=== PATIENT | female | born 1935 | race Caucasian/White ===

== ENCOUNTER 2017-08-03 19:17 | Inpatient (IN) ==
--- NOTE | 2017-08-03 19:42 | Emergency Department Report ---
General Adult HPI - General Chief complaint: Chest Pain Stated complaint: Back Pain Time Seen by Provider: 08/03/17 19:41 Source: patient, EMS Mode of arrival: EMS Limitations: no limitations - History of Present Illness HPI narrative: 82-year-old female presents to the emergency department with the chief complaint of pain in her posterior left shoulder region. She noted onset of symptoms at approximately 11:30 this morning while shopping and walking through [facility]. Patient states that she has tried Gas-X and a sublingual nitroglycerin at home without improvement of symptoms. The patient's pain continued and she called EMS. Patient was given 324 mg of aspirin by mouth 1 by EMS. She was given 50 g of IV fentanyl with improvement of symptoms. Patient denies any recent trauma or injury. She was at [facility] when her symptoms began. Symptoms have been persistent in nature with some improvement since onset. Patient also noted feeling slightly sweaty with her symptoms. Patient does have a history of coronary artery disease. - Related Data Home Medications Medication Instructions Recorded Confirmed Gabapentin 300 mg PO BIDBL #0 06/19/15 08/03/17 Levothyroxine Sodium 75 mcg PO ACB #0 06/19/15 08/03/17 Ondansetron [Ondansetron Odt] 8 mg PO PRN PRN #0 06/19/15 08/03/17 Atorvastatin Calcium 20 mg PO HS #0 06/23/15 08/03/17 Cyclobenzaprine [Flexeril] 1 tab PO HS PRN 03/02/17 08/03/17 predniSONE [Prednisone] 10 mg PO DAILY 03/02/17 08/03/17 Aspirin 81 mg PO DAILY 05/19/17 08/03/17 Gabapentin 600 mg PO HS 05/19/17 08/03/17 LORazepam [Ativan] 0.5 mg PO HS 05/19/17 08/03/17 Sertraline [Zoloft] 50 mg PO HS 05/19/17 08/03/17 sulfaSALAzine [Sulfasalazine Dr] 500 mg PO BID 05/19/17 08/03/17 Nitroglycerin [Nitrostat] 0.4 mg SL PRN PRN 08/03/17 08/03/17 Previous Rx's Medication Instructions Recorded Oxycodone/Acetaminophen 5/325 1 tab PO Q6HR PRN #30 tab 03/04/17 [Percocet 5/325] PEG 3350 17gm PACKET [Miralax] 17 gm PO DAILY #7 packet 03/04/17 Clopidogrel Bisulfate [Clopidogrel] 75 mg PO DAILY #30 tab 05/20/17 Ferrous Fumarate/Docusate [Iron 1 each PO DAILY 30 Days #30 05/20/17 W-Stool Softener Cplet] tablet.er Allergies Allergy/AdvReac Type Severity Reaction Status Date / Time No Known Allergies Allergy Verified 03/04/17 11:21 Review of Systems Constitutional: Denies: fever, chills Eyes: Denies: eye pain, vision change ENT: Denies: ear pain, throat pain Cardiovascular: Denies: chest pain, palpitations Respiratory: Denies: cough, dyspnea, wheezes Gastrointestinal: Denies: abdominal pain, nausea, vomiting, diarrhea Genitourinary: Denies: urgency, dysuria Musculoskeletal: Denies: back pain, arthralgia Integumentary: Denies: erythema, rash Neurological: Denies: headache, numbness, paresthesias Psychiatric: Denies: anxiety, depression Endocrine: Denies: polydipsia, polyuria Hematological/Lymphatic: Denies: easy bruising, lymphadenopathy Allergic/Immunologic: Denies: urticaria, itchy eyes PFSH Patient Stated Medical History Cardiac Arrhythmia Yes: skips a beat, pvc Coronary Artery Disease Yes: stent x 2 2015 EF 65% Hypertension Yes Myocardial Infarction Yes: states 05/2015 Chronic Obstructive Pulmonary Yes Disease (COPD) Pneumonia Yes: Hx Sleep Apnea No Diabetes Mellitus Type 1 No Diabetes Mellitus Type 2 No Gastroesophageal Reflux Yes Disease Other GI Yes: Inguinal Hernia, 'CONSTIPATION ISSUES' Hx Incontinence Yes Hx Urinary Tract Infection Yes Anemia Yes Osteoarthritis Yes Sepsis Yes: HX OF Depression Yes Post Menopausal Yes Clinic Medical History (Last Updated 01/26/17 @ 14:19 by Laura Collins CNA) Cardiac abnormality (Acute Medical) High cholesterol (Acute Medical) Hypertension (Acute Medical) Insomnia (Acute Medical) Medical History Updates: COPD Surgical History: Right knee arthroscopy. BCC removed from calf. Left inguinal hernia repair 2012 (Dr. Brand). umbilical hernia repair 2017. Right inguinal hernia repair with mesh 03/04/2017. Family History: Reviewed and noncontributory. - Social History Smoking status: Current some day smoker second hand exposure: No Substance use type: does not use Alcohol intake frequency: does not drink Does patient use chewing tobacco?: No Physical Exam - Limitations Limitations: no limitations - General General appearance: alert, in no apparent distress - Normal Exams: Head:: Normocephalic without trauma Eyes:: Pupils are PERRLA w/ EOMI, No scleral icterus, irritation, or foreign bodies noted ENMT:: No facial trauma, nasal exudates, pharyngeal erythema, or exudates are noted Dental: No fractured, loose, or missing teeth noted Neck:: Full range of motion, without adenopathy, JVD, bruits or thyromegaly Chest/Respirations:: Clear all [place], with good airflow, and symmetry bilaterally Cardiovascular:: Regular rate and rhythm, without murmur or gallop, Pulses 2+ all extremities, capillary refill, <2 seconds all extremities Abdomen:: Bowel sounds positive, soft, non-tender, non-distended, no hepatosplenomegaly, masses or bruits noted Lymphatic:: No lymphadenopathy, or lymphedema noted Musculoskeletal:: No tenderness (she does have some tenderness to palpation behind the left shoulder blade. Doses are intact. Sensation intact. Capillary refill less than 2. Skin is intact. No erythema. No edema. No focal bony tenderness. Full range of motion. no other pain in the LUE. All other extremities are unremarkable.), or deformity noted, good range of motion, all extremities Integumentary:: No rashes, hives, or bruising noted, hair and nails, without abnormality Neurological:: Patient is alert, and oriented, cranial nerves, motor/sensory/ cerebellar, exams w/o gross deficits, to observation Psychiatric:: Patient exhibits, appropriate attention, emotion and affect Course Vital Signs Temperature 98.0 F 08/03/17 19:18 Pulse Rate 86 08/03/17 19:18 Respiratory Rate 20 08/03/17 19:18 Blood Pressure 178/84 H 08/03/17 19:18 Pulse Oximetry 100 08/03/17 19:18 Temperature 98.0 F 08/03/17 19:18 Pulse Rate 86 08/03/17 19:18 Respiratory Rate 20 08/03/17 19:18 Blood Pressure 178/84 H 08/03/17 19:18 Pulse Oximetry 100 08/03/17 19:18 Medical Decision Making - [facility] Narrative Medical decision making narrative: Labs / imaging were discussed in detail with the patient and family and questions are answered. Patient was given 324 mg of aspirin by mouth 1 by EMS prior to arrival to the emergency department today. Patient was given sublingual nitroglycerin 1 in the emergency department with no change in symptoms. She was given parental narcotic pain medication with some improvement of symptoms. Patient was discussed with her engine repairer Dr. Eamon Nguyen who recommends admission to the hospitalist service and he will see the patient in consultation. Patient and family are in agreement with the current plan of management. Patient is reviewed with Dr. Wesley Rhoades and admitted to his service in improved condition. Orders from accepting or consulting physicians who are in agreement with the current plan of management. Patient will be admitted to telemetry for further evaluation and treatment. Patient is noted to have a chronic infiltrate on her CT of the chest and at this time does not have a new or productive cough. Antibiotic regimen will be initiated at the discretion of the hospitalist after evaluation of the patient. - Differential Diagnosis ACS, PE, Pneumothorax, Metabolic disorder - Lab Data Result diagrams: 08/03/17 Unknown 08/03/17 Unknown - Radiology Data CTA Chest - IMPRESSION: Apical consolidation likely chronic atelectasis, scarring and pleural thickening. Left upper lobe peripheral infiltrate likely chronic. No CT evidence of pulmonary embolism. - EKG Data EKG #1 EKG results narrative: Sinus rhythm. 81 bpm. No STEMI. Disposition Clinical Impression: Chest pain Qualifiers: Chest pain type: unspecified Qualified Code(s): R07.9 - Chest pain, unspecified Disposition: 02 To [facility] [place] Condition: Stable Time of Disposition: 21:40 (Ad[address] Dr. Rhoades.) - Seen By: physician
--- NOTE | 2017-08-03 20:27 | Cardiology Consult Note ---
History of Present Illness Consult reason: chest pain, known to you History of present illness: L scapula pain radiating to anterior L chest all day, satrted while walking at [employer] no other radiation , similar to prior CA pain. no change after 6-8 tums and 1 SL NTG at home, partially better after IV Fentanyl. some SOA more than usual. pain may be worse with L arm moveemnt. had CP both w/ and w/o activity. according to daughter , has been having CP x 2 wks and is scheduled to see me this . she has kniwn COPd and continue to smoke although down to 2 cig /day no LE edema fever or chills recent SAM to RCA 04/2017 and previous NSTEMI 2 yrs ago. She felt terrible with a previous gerald/ stress nuc scan d/t h/a nausea and gen. ache Review of Systems All systems PM: 10-point ROS was reviewed, no additional remarkable complaints except - Hematologic/Lymphatic Hematologic/Lymphatic: Present: easy bruising PFSH Patient Stated Medical History Cardiac Arrhythmia Yes: skips a beat, pvc Coronary Artery Disease Yes: stent x 2 2015 EF 65% Hypertension Yes Myocardial Infarction Yes: states 05/2015 Chronic Obstructive Pulmonary Yes Disease (COPD) Pneumonia Yes Sleep Apnea No Diabetes Mellitus Type 1 No Diabetes Mellitus Type 2 No Gastroesophageal Reflux Yes Disease Other GI Yes: 'CONSTIPATION ISSUES' Hx Incontinence Yes Hx Urinary Tract Infection Yes Anemia Yes Osteoarthritis Yes Sepsis Yes: HX OF Depression Yes Post Menopausal Yes Clinic Medical History (Last Updated 01/26/17 @ 14:19 by Laura Collins CNA) Cardiac abnormality (Acute Medical) High cholesterol (Acute Medical) Hypertension (Acute Medical) Insomnia (Acute Medical) Medical History Updates: COPD Surgical History: Right knee arthroscopy. BCC removed from calf. Left inguinal hernia repair 2012 (Dr. Brand). umbilical hernia repair 2017. Right inguinal hernia repair with mesh 03/04/2017. - Social History Smoking status: Current some day smoker second hand exposure: No Substance use type: does not use Alcohol intake frequency: does not drink Does patient use chewing tobacco?: No Medications Home Medications Medication Instructions Recorded Confirmed Type Gabapentin 300 mg PO BIDBL #0 06/19/15 08/03/17 History Levothyroxine Sodium 75 mcg PO ACB #0 06/19/15 08/03/17 History Ondansetron [Ondansetron Odt] 8 mg PO PRN PRN #0 06/19/15 08/03/17 History Atorvastatin Calcium 20 mg PO HS #0 06/23/15 08/03/17 History Cyclobenzaprine [Flexeril] 1 tab PO HS PRN 03/02/17 08/03/17 History predniSONE [Prednisone] 10 mg PO DAILY 03/02/17 08/03/17 History Oxycodone/Acetaminophen 5/325 1 tab PO Q6HR PRN #30 tab 03/04/17 08/03/17 Rx [Percocet 5/325] PEG 3350 17gm PACKET [Miralax] 17 gm PO DAILY #7 packet 03/04/17 08/03/17 Rx Aspirin 81 mg PO DAILY 05/19/17 08/03/17 History Gabapentin 600 mg PO HS 05/19/17 08/03/17 History LORazepam [Ativan] 0.5 mg PO HS 05/19/17 08/03/17 History Sertraline [Zoloft] 50 mg PO HS 05/19/17 08/03/17 History sulfaSALAzine [Sulfasalazine Dr] 500 mg PO BID 05/19/17 08/03/17 History Clopidogrel Bisulfate [Clopidogrel] 75 mg PO DAILY #30 tab 05/20/17 08/03/17 Rx Ferrous Fumarate/Docusate [Iron 1 each PO DAILY 30 Days #30 05/20/17 08/03/17 Rx W-Stool Softener Cplet] tablet.er Nitroglycerin [Nitrostat] 0.4 mg SL PRN PRN 08/03/17 08/03/17 History Allergies Allergy/AdvReac Type Severity Reaction Status Date / Time No Known Allergies Allergy Verified 03/04/17 11:21 Exam Vital signs: Temperature 98.0 F 08/03/17 19:18 Pulse Rate 86 08/03/17 19:18 Respiratory Rate 20 08/03/17 19:18 Blood Pressure 178/84 H 08/03/17 19:18 Pulse Oximetry 100 08/03/17 19:18 - Constitutional mild distress, cachectic - Routine HEENT Exam Head: Present: normocephalic, atraumatic Eye: Present: EOMI, PERRL ENT: Present: mucous membranes moist - Routine Neck Exam Present: normal carotid upstroke. Absent: JVD, carotid bruit, lymphadenopathy, thyromegaly - Routine Chest/Breast/Axilla Exam Chest wall: Present: tenderness (L scapula point tenderness) - Routine Respiratory Exam Present: decreased breath sounds, CTA bilaterally, diminished air movement - Routine Cardiovascular Exam Present: RRR, S1 (distant), S2 (distant), no murmur. Absent: bradycardia, tachycardia, irregular rhythm, JVD - Routine Abdominal Exam Present: soft, normoactive bowel sounds, non distended, non tender - Routine Extremities Exam Present: no edema, pulses intact, normal capillary refill. Absent: cyanosis, clubbing - Routine Skin Exam Present: intact, dry. Absent: cyanosis, erythema - Routine Neurological Exam Present: alert, oriented X3, CN II-XII intact, vision grossly intact, hearing grossly intact, normal speech. Absent: altered mental status, hemineglect, facial asymmetry - Routine Psychiatric Exam Present: cooperative, good insight, anxious Results 08/03/17 Unknown 08/03/17 Unknown Cardiac Enzymes 08/03/17 Range/Units Unknown AST 32 (14-36) U/L Troponin I < 0.012 (0-0.12) ng/ml CBC 08/03/17 Range/Units Unknown WBC 12.4 H (4.5-11.0) T/MM3 RBC 3.51 L (4.00-5.20) M/MM3 Hgb 10.8 L (12-16) GM/DL Hct 32.7 L (36-46) % Plt Count 296 (130-400) T/MM3 Neut # (Auto) 10.1 H (1.8-7.7) T/MM3 Lymph # (Auto) 1.7 (1-4.8) T/MM3 [place] # (Auto) 0.6 (0-0.8) T/MM3 Eos # (Auto) 0.0 (0-0.5) T/MM3 Baso # (Auto) 0.0 (0-0.2) T/MM3 Comprehensive Metabolic Panel 08/03/17 Range/Units Unknown Sodium 135 L (136-146) MEQ/L Potassium 4.5 (3.6-5) MEQ/L Chloride 96 L (98-107) MEQ/L Carbon Dioxide 26 (22-30) MEQ/L BUN 12.0 (7-17) MG/DL Creatinine 0.8 (0.7-1.2) mg/dL Glucose 123 H (65-110) MG/DL Calcium 8.8 (8.4-10.2) MG/DL AST 32 (14-36) U/L ALT 16 (1-35) U/L Alkaline Phosphatase 84 (38-126) U/L Total Protein 7.8 (6.3-8.2) g/dL Albumin 4.5 (3.5-5.0) g/dL Intake and Output 08/03/17 08/03/17 08/03/17 06:59 14:59 22:59 Other: Weight 50 kg Patient Weight 08/04/17 06:59 Weight 50 kg - EKG Interpretation EKG: sinus rhythm, no acute changes Assessment and Plan - Assessment and Plan CP/L scapula uncertain etiology CAD w prior stents and NSTEMI COPD pain control try NTG x1 and fentanyl prior to admission home meds agree w admission 23hr r/o CA r/o PE and thoracic aneurysm (unlikely) i think chest CT is reasonable may need pharm. stress nuc scan ,premedicate w anxio;ytic thanks Hospital Course Summary Disclaimer: The visit summary below is not to be considered part of the above Progress Note.
[2017-08-03] MEDS ORDERED: IOHEXOL 350mg/ml 75ml INJECTION ONE (20:32)
[2017-08-03] MEDS ORDERED: SALINE FLUSH 10ml SYRINGE ONE (20:32)
[2017-08-03] MEDS ORDERED: NITROGLYCERIN 0.4 MG SUBLINGUAL TABLET SL ONE (21:42)
[2017-08-03] MEDS ORDERED: FentaNYL 100 MCG/2 ML INJECTION IVP ONE (22:20)
[2017-08-03] MEDS: SALINE FLUSH 10ml SYRINGE IVF PRN (22:29)
[2017-08-03] MEDS ORDERED: MORPHINE SULFATE 4mg INJECTION IVP PRN (22:47)
[2017-08-03] MEDS ORDERED: GLUCOSE ORAL GEL 40% 37.5gm PO PRN (22:47)
[2017-08-03] MEDS ORDERED: DEXTROSE 50% SYRINGE 50ml (1 AMP) IVP PRN (22:47)
[2017-08-03] MEDS ORDERED: CYCLOBENZAPRINE 10 MG TABLET PO PRN (22:47)
[2017-08-03] MEDS ORDERED: INSULIN ASPART 100unit/ml INJECTION SQ PRN (22:47)
[2017-08-03] MEDS ORDERED: NITROGLYCERIN 0.4 MG SUBLINGUAL TABLET SL PRN (22:47)
[2017-08-03 22:50] VITALS: BMI 19.3
[2017-08-03] MEDS: Oxycodone/Acetaminophen 5/325 1 TAB PO PRN (23:30)
--- NOTE | 2017-08-03 23:56 | History & Physical Report ---
History of Present Illness Date: 08/04/17 Chief complaint: left shoulder blade pain HPI: This is a 82 y/o female with a history of CAD s/p 3 stents 05/09. The patient has had previous NSTEMI 2 yrs ago. The patient had onset of left scapular pain for the past 2 weeks that comes and goes. She thought ? ms in nature and as such didn't seek immediate evaluation. Patient will note that the pain is similar to her previous episodes of cardiac instability. Today the patient was at a store shopping and the pain worsened. She became more short of breath. Appreciate that she is also a COPD patient. The patient activated EMs ultimately with her daughters encouragement, and they treated her with fentanyl which seemed to help her pain. ED eval was against acute myocardial infarct. Troponin negative, EKG non ischemic CTA chest excluded acute process. Patient was scheduled to see cardiology on and Cardiology came into the ED to evaluate and r/c admission with further consideration. Review of Systems Review of systems: no headache, no fever, chills or sweats, no neck or jaw pain. left scapular pain that at times might have been worse with palpation, not affected by breathing. today pain also wrapped around her left breast. This pain is improved with fentanyl. NtG not clear if helped. Increased short of breath today, cough non productive, no abdomen pain, no diaphoresis, no nausea/ vomiting, no change in BM, no skin rashes, no edema to legs, no focal neuro complaints. 12 point ROS otherwise negative except for outlined above. Past Medical History Medical History: Medical History (Last Updated 01/26/17 @ 14:19 by Laura Collins CNA) Cardiac abnormality High cholesterol Hypertension Insomnia Medical History Updates: COPD Surgical History: Right knee arthroscopy. BCC removed from calf. Left inguinal hernia repair 2012 (Dr. Brand). umbilical hernia repair 2017. Right inguinal hernia repair with mesh 03/04/2017. Family History: No Significant Family History - Social History Smoking status: Current some day smoker Substance use type: does not use Alcohol intake frequency: does not drink Housing: assisted living facility Household members: none Current occupational status: retired Previous occupational history: housewife Does patient use chewing tobacco?: No Current residence: Independent Living Medications Home Medications Medication Instructions Recorded Confirmed Type Gabapentin 300 mg PO BIDBL #0 06/19/15 08/03/17 History Levothyroxine Sodium 75 mcg PO ACB #0 06/19/15 08/03/17 History Ondansetron [Ondansetron Odt] 8 mg PO PRN PRN #0 06/19/15 08/03/17 History Atorvastatin Calcium 20 mg PO HS #0 06/23/15 08/03/17 History Cyclobenzaprine [Flexeril] 1 tab PO HS PRN 03/02/17 08/03/17 History predniSONE [Prednisone] 10 mg PO DAILY 03/02/17 08/03/17 History Oxycodone/Acetaminophen 5/325 1 tab PO Q6HR PRN #30 tab 03/04/17 08/03/17 Rx [Percocet 5/325] PEG 3350 17gm PACKET [Miralax] 17 gm PO DAILY #7 packet 03/04/17 08/03/17 Rx Aspirin 81 mg PO DAILY 05/19/17 08/03/17 History Gabapentin 600 mg PO HS 05/19/17 08/03/17 History LORazepam [Ativan] 0.5 mg PO HS 05/19/17 08/03/17 History Sertraline [Zoloft] 50 mg PO HS 05/19/17 08/03/17 History sulfaSALAzine [Sulfasalazine Dr] 500 mg PO BID 05/19/17 08/03/17 History Clopidogrel Bisulfate [Clopidogrel] 75 mg PO DAILY #30 tab 05/20/17 08/03/17 Rx Ferrous Fumarate/Docusate [Iron 1 each PO DAILY 30 Days #30 05/20/17 08/03/17 Rx W-Stool Softener Cplet] tablet.er Nitroglycerin [Nitrostat] 0.4 mg SL PRN PRN 08/03/17 08/03/17 History Allergies Allergy/AdvReac Type Severity Reaction Status Date / Time No Known Allergies Allergy Verified 03/04/17 11:21 Exam Vital Signs: Temperature 98.4 F 08/03/17 22:51 Pulse Rate 72 08/03/17 22:52 Respiratory Rate 12 08/03/17 23:30 Blood Pressure 167/71 H 08/03/17 22:47 Pulse Oximetry 96 08/03/17 22:52 Telemetry Rhythm: Sinus Rhythm Height/Weight/BMI: Height 1.57 m Weight 48.1 kg Body Mass Index 19.3 - Constitutional Present: no acute distress, well nourished, well developed, thin, cooperative - Routine HEENT Exam Head: Present: normocephalic, atraumatic Eye: Present: PERRL, conjunctivae pink ENT: Present: mucous membranes moist - Routine Neck Exam Present: full ROM - Routine Chest/Breast/Axilla Exam Comments: left back not tender to palpation per nursing - Routine Respiratory Exam Comments: very diminished without wheezes (insp or exp) - Routine Cardiovascular Exam Present: RRR, no murmur - Routine Abdominal Exam Present: soft, normoactive bowel sounds, non distended, non tender - Routine Extremities Exam Present: non tender, full ROM - Routine Back/Spine/Pelvis Exam Back/Spine: Present: full ROM - Routine Skin Exam Present: intact - Routine Neurological Exam Present: alert, oriented X3, CN II-XII intact, moving all extremities, normal tone, vision grossly intact, hearing grossly intact, normal speech - Routine Psychiatric Exam Present: normal thought process, cooperative, good insight, good judgment Results - Labs CBC & Chem 7: 08/03/17 Unknown 08/04/17 04:24 Labs: reviewed and will be discussed below pCXR no acute process CT chest no PE, chronic changes most c/w chronic lung ds. EKG: sinus, non ischemic (see card note) Assessment and Plan (1) Chest pain of unknown etiology Current visit: Yes (2) Coronary artery disease Current visit: Yes Status: Acute (3) DM type 2 (diabetes mellitus, type 2) Current visit: Yes Status: Acute (4) Hypothyroid coma Current visit: Yes Status: Acute (5) Hypothyroid Current visit: Yes Status: Acute (6) COPD (chronic obstructive pulmonary disease) Current visit: Yes Status: Acute (7) Iron (Fe) deficiency anemia Current visit: Yes Status: Acute Assessment and Plan: 1. left scapular pain acute POA: at this time admit and rule out. concerning issue is similar pain to previous unstable anginal events. Card saw in ED and will see in am. NPO for ? nuc stress. Patient with anxiety (states would never have this test again). Cardiology will assess and address after rule out overnight. DDX: MS, pleuresy, atypical GERD. Patient CT excluded large PE. 2. CAD chronic POA: continue statin, plavix, aspirin, currently does not appear to be on b diogenes. most likely related to pulm ds. (see # 1) 3. DM2 chronic POA: correctional plan 4. hypothryoid chronic POA: synthroid, 5. COPD chronic POA: continues to smoke (down 2 # 2 cig a day). 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 nebs prn. ? if on steroids. need to confirm. for now will not continue overnight 6. DVT ppx; SCd, lovenox 7. gastric ppx: PPI DVT Prophylaxis: SCD's, Lovenox GI Prophylaxis: Protonix Resuscitation Status: Do Not Resuscitate - Time spent with patient Time with patient PN: 35 minutes - Physician Narrative Physician: Brian Ortiz MD Narrative: Date: 07/23/17 Time: Piotr Ortiz Have independently interviewed and examined pt. Chart reviewed. Reviewed above note and concur. CC: Left shoulder pain HPI: 82 y/o female with known CAD and recent stent placement in April of this year [place] [facility] [place] secondary to left shoulder radiating to left chest pain, feeling similar to pain she had when had her NC about 3 years ago. Report her energy level has increased significantly since receiving IV IRON injections. Has been able to be more and more active. Started having increased left shoulder pain about 2 weeks ago. No obvious trauma or injury (reports just more active). Pain would wax and wane. Day of presentation, was shopping for groceries when shoulder pain worsen. Pain so severe that would take her breath away. Hard to breath do to pain. Wondered if was gas - went to the pharmacy and tried simethicone, with no help. Had to leave all her groceries there as could not handle checking out with the pain. At home-tried NTG with no change. Ultimately activated EMS. Given NTG and IV Fentanyl which helped decrease her symptoms (did have concern that her NTG is old - did not feel the 'burning' with her table as the one she was given.) Evaluated in ED. CTA negative for PE. Trop negative. Dr Nguyen contacted and recommended further evaluation to exclude AMI. PMHx: CAD with Hx NC and stents, HTN, HDL, COPD, Tobacco dependency, GERD, Constipation, OA, OF, Depression, insomnia ALL: NKDA MEDS: see MAR SHx: (lost of 54 years about 4 years ago). Reside independently with daughter next door. Smokes about 2 cigarettes a day. No ETOH. Dr Tacos Garcia is PCP. FHX: CAD In mother, father, 2 sisters and brother. ROS: as in HPI, Remainder of 10 point ROS neg except for constipation which she reports morning cigarette helps. EXAM GEN: [id number] A&O HEENT: NC/AT PERRLA EOMI MMM NECK: supple, trachea midline CV: regular rate and rhythm without murmur Lungs: decrease breath sounds bilaterally, but good air movement without crackles/wheezes/distress AB: Soft nt/nd +BS EXT: thin, no edema SKIN: warm and dry. Thin skin noted on LE bilaterally, with chronic bruising Neuro: CN II-XII intact, no focal motor deficits PSYCH: awake, alert, appropriate. Thoughts linear. Assessment Left shoulder pain - concern for underlying unstable angina base on patient's prior history CAD with recent stent placement in April of this year HTN HDL COPD Tobacco dependency GERD Constipation OA OF Plan OBS admission at presentation secondary to cardiac concerns to rule out AMI. TELE. Serial enzymes. Consult Dr Nguyen for cardiac recommendations. Continue home medications. Check lipid profile secondary to CAD/HDL and medication use. MS/NTG prn pain. Encourage tobacco cessation - Consult to RT placed. DNR as per her requests. Care to return to Dr Garcia at time of discharge [place] [facility] [place] Hospital Course Summary Disclaimer: The visit summary below is not to be considered part of the above Progress Note.
[2017-08-04] MEDS: Oxycodone/Acetaminophen 5/325 1 TAB PO PRN ×2 (06:27→14:10)
[2017-08-04] MEDS ORDERED: LEVOTHYROXINE 75 MCG TABLET PO SCH (06:30)
[2017-08-04 07:47] VITALS: TEMP 97.9
[2017-08-04] MEDS ORDERED: PredniSONE 10 MG TABLET PO SCH (08:00)
[2017-08-04] MEDS ORDERED: DOCUSATE SODIUM 100 MG CAPSULE PO SCH (08:00)
--- NOTE | 2017-08-04 08:12 | CT Scan Report ---
Indication: Shortness of air and upper back pain radiating to the chest PROCEDURE: CT angio pulm emboli: Encounter: Initial Comparison: None Technique: Axial CT pulmonary angiographic phase images were performed through the chest after the administration of intravenous contrast. Coronal and Sagittal MIP reconstructed images were created and reviewed. Automated Exposure Control and Iterative Reconstruction dose reducing techniques were utilized. Contrast: Omnipaque 350 49 mL Findings: Pulmonary arteries: Exam is diagnostic to the subsegmental pulmonary arterial level. No filling defects identified to suggest a pulmonary embolus. Other findings: Bilateral apical pleural thickening and scarring. No acute consolidative pneumonia. No pleural effusion or pneumothorax. Evidence of prior infection or inflammation in the lingula. Patulous esophagus. The central airways are patent. No gross adenopathy. Heart size is normal. No pericardial effusion. Upper abdomen shows no acute findings. Impression: No pulmonary embolus or acute pneumonia. There is a preliminary report by virtual radiologic. .
[2017-08-04] MEDS ORDERED: CLOPIDOGREL 75 MG TABLET PO SCH (09:00)
[2017-08-04] MEDS ORDERED: POLYETHYL GLYCOL 3350 17gm PACKET PO SCH (09:00)
[2017-08-04] MEDS ORDERED: ASPIRIN 81 MG CHEWABLE TABLET PO SCH (09:00)
[2017-08-04] MEDS ORDERED: METOCLOPRAMIDE 10mg/2ml INJECTION IVP PRN (11:42)
[2017-08-04] MEDS ORDERED: NITROGLYCERIN 0.4 MG SUBLINGUAL TABLET SL PRN (11:42)
[2017-08-04] MEDS ORDERED: HYDROCODONE/APAP 5mg/325mg TABLET PO PRN (11:42)
[2017-08-04] MEDS ORDERED: ACETAMINOPHEN 325 MG TABLET PO PRN (11:42)
[2017-08-04] MEDS ORDERED: MAG-AL + SIM ORAL LIQUID 30ml PO PRN (11:42)
[2017-08-04] MEDS ORDERED: ATROPINE 1 MG/ML INJECTION IVP PRN (11:42)
[2017-08-04] MEDS ORDERED: LORazepam 0.5 MG TABLET PO PRN (11:42)
[2017-08-04] MEDS ORDERED: ONDANSETRON 4 MG/2 ML INJECTION IVP PRN (11:42)
[2017-08-04] MEDS ORDERED: BISACODYL 10 MG SUPPOSITORY RECTALLY PRN (11:42)
[2017-08-04] MEDS ORDERED: MORPHINE SULFATE 4mg INJECTION IVP PRN ×2 (11:42)
[2017-08-04] MEDS ORDERED: PROMETHAZINE 25 MG INJECTION IVP PRN (11:42)
--- NOTE | 2017-08-04 11:49 | Cardiology Progress Note ---
Subjective Interval history: vague historian ,copntinuied to have L CP to scapula ,worse with activity ( after she got iron infusion and felt more enrgetic started experiencing worse L shoulder/cp in the last a couple of months. at times also worse with breathing and shoulder movement. "I'd rather than having another stress test, can you put me out like with the heart cath ? that was a piece of cake" doesn't remember what NTG did . CP has been intermittent Exam Vital signs: Temperature 97.9 F 08/04/17 07:41 Pulse Rate 64 08/04/17 10:53 Respiratory Rate 13 08/04/17 07:41 Blood Pressure 140/64 H 08/04/17 07:41 Pulse Oximetry 96 08/04/17 08:07 Inpatient Medications: Generic Name Dose Route Start Last Admin Trade Name Freq PRN Reason Stop Dose Admin Aspirin 81 mg 08/04/17 09:00 Asa PO DAILY [facility] Atorvastatin Calcium 20 mg 08/04/17 21:00 Lipitor PO HS [facility] Clopidogrel Bisulfate 75 mg 08/04/17 09:00 Plavix PO DAILY [facility] Cyclobenzaprine HCl 10 mg 08/03/17 22:47 08/03/17 23:20 Flexeril PO 10 mg HS PRN Administration Muscle spasm Dextrose 25 ml 08/03/17 22:47 D50%W IVP PRN PRN Hypoglycemia Docusate Sodium 100 mg 08/04/17 08:00 Colace PO 0800 WILLOW Ferrous Sulfate 1 mg 08/04/17 08:00 Feosol PO WB [facility] Gabapentin 300 mg 08/04/17 08:00 Neurontin PO BIDBL [facility] Gabapentin 600 mg 08/04/17 21:00 08/03/17 23:20 Neurontin PO 600 mg HS WILLOW Administration Glucose 37.5 gm 08/03/17 22:47 Glutose 15 PO PRN PRN Hypoglycemia Insulin Aspart 1 - 5 unit 08/03/17 22:47 Novolog SQ SS PRN Hyperglycemia Protocol Levothyroxine Sodium 75 mcg 08/04/17 06:30 08/04/17 06:27 Synthroid PO 75 mcg ACB WILLOW Administration Lorazepam 0.5 mg 08/04/17 21:00 08/03/17 23:20 Ativan PO 0.5 mg HS WILLOW Administration Morphine Sulfate 2 mg 08/03/17 22:47 Morphine Sulfate Inj IVP Q5M PRN Chest pain Nitroglycerin 0.4 mg 08/03/17 22:47 Nitrostat SL PRN PRN Chest pain Oxycodone/Acetaminophen 1 tab 08/03/17 22:47 08/04/17 06:27 Percocet 5/325 PO 1 tab Q6HR PRN Administration Pain Polyethylene Glycol 17 gm 08/04/17 09:00 08/04/17 09:09 Miralax PO Not Given DAILY WILL[facility] Prednisone 10 mg 08/04/17 08:00 Deltasone 10 Mg PO WB WILL[facility] Sertraline HCl 50 mg 08/04/17 21:00 Zoloft PO HS WILL[facility] Sodium Chloride 10 - 80 ml 08/03/17 19:42 08/03/17 22:29 Iv Flush IVF 10 ml PRN PRN Administration Flushing Sulfasalazine 500 mg 08/04/17 09:00 Azulfidine PO BID WILLOW Discontinued Medications Generic Name Dose Route Start Last Admin Trade Name Freq PRN Reason Stop Dose Admin Fentanyl 50 mcg 08/03/17 22:20 08/03/17 22:28 Fentanyl IVP 08/03/17 22:21 50 mcg O ONE Administration Nitroglycerin 0.4 mg 08/03/17 21:42 08/03/17 22:10 Nitrostat SL 08/03/17 21:43 0.4 mg O ONE Administration Results 08/03/17 Unknown 08/04/17 04:24 Cardiac Enzymes 08/03/17 08/03/17 08/04/17 Range/Units 22:59 Unknown 04:24 AST 32 26 (14-36) U/L Troponin I < 0.012 < 0.012 (0-0.12) ng/ml 08/04/17 Range/Units 04:24 AST (14-36) U/L Troponin I < 0.012 (0-0.12) ng/ml Lipids 08/04/17 Range/Units 04:24 Triglycerides 68 (35-135) mg/dL Cholesterol 129 L (132-199) mg/dL HDL Cholesterol 76 H (40-60) mg/dL Cholesterol/HDL Ratio 1.7 (0-4.0) RATIO CBC 08/03/17 Range/Units Unknown WBC 12.4 H (4.5-11.0) T/MM3 RBC 3.51 L (4.00-5.20) M/MM3 Hgb 10.8 L (12-16) GM/DL Hct 32.7 L (36-46) % Plt Count 296 (130-400) T/MM3 Neut # (Auto) 10.1 H (1.8-7.7) T/MM3 Lymph # (Auto) 1.7 (1-4.8) T/MM3 Powell # (Auto) 0.6 (0-0.8) T/MM3 Eos # (Auto) 0.0 (0-0.5) T/MM3 Baso # (Auto) 0.0 (0-0.2) T/MM3 Comprehensive Metabolic Panel 08/03/17 08/04/17 Range/Units Unknown 04:24 Sodium 135 L 137 (136-146) MEQ/L Potassium 4.5 4.2 (3.6-5) MEQ/L Chloride 96 L 100 (98-107) MEQ/L Carbon Dioxide 26 29 (22-30) MEQ/L BUN 12.0 12.0 (7-17) MG/DL Creatinine 0.8 0.8 (0.7-1.2) mg/dL Glucose 123 H 86 (65-110) MG/DL Calcium 8.8 8.4 (8.4-10.2) MG/DL AST 32 26 (14-36) U/L ALT 16 13 (1-35) U/L Alkaline Phosphatase 84 62 D (38-126) U/L Total Protein 7.8 6.6 (6.3-8.2) g/dL Albumin 4.5 3.6 (3.5-5.0) g/dL Intake and Output 08/03/17 08/04/17 08/04/17 22:59 06:59 14:59 Intake Total 240 / 240 Balance 240 / 240 Intake: Oral 240 / 240 Other: Urine Appearance Clear Urine Color Pale Yellow # Voids 1 1 1 Weight 48.1 kg 49 kg Patient Weight 08/05/17 06:59 Weight 49 kg Hospital Course Summary Disclaimer: The visit summary below is not to be considered part of the above Progress Note.
[2017-08-04] MEDS ORDERED: NS 1,000 ML IV SCH (12:00)
[2017-08-04] MEDS ORDERED: SERTRALINE 50 MG TABLET PO SCH ×2 (12:00→21:00)
[2017-08-04] MEDS ORDERED: ATORVASTATIN 20 MG TABLET PO SCH ×2 (12:00→21:00)
[2017-08-04] MEDS: SALINE FLUSH 10ml SYRINGE IVF PRN (12:10)
[2017-08-04] MEDS ORDERED: LIDOCAINE 1% (10mg/ml) 30ml SDV INJ ONE (12:36)
[2017-08-04] MEDS ORDERED: HEPARIN 1,000 UNITS/500 ML PREMIX (*CVL ONLY*) IV ONE ×2 (12:36→13:00)
[2017-08-04] MEDS ORDERED: HEPARIN 1,000unit/ml INJECTION 10ml ONE (12:56)
[2017-08-04] MEDS ORDERED: MIDAZOLAM 2mg/2ml INJECTION ONE (12:56)
[2017-08-04] MEDS ORDERED: FentaNYL 100 MCG/2 ML INJECTION ONE (12:56)
[2017-08-04] MEDS ORDERED: NITROGLYCERIN 50MG INJECTION IV ONE (12:56)
[2017-08-04] MEDS ORDERED: Verapamil 5 MG/2 ML VIAL ONE (12:56)
--- NOTE | 2017-08-04 13:43 | Cardiology Progress Note ---
Subjective Interval history: vague historian ,copntinuied to have L CP to scapula ,worse with activity ( after she got iron infusion and felt more enrgetic started experiencing worse L shoulder/cp in the last a couple of months. at times also worse with breathing and shoulder movement. "I'd rather than having another stress test, can you put me out like with the heart cath ? that was a piece of cake" doesn't remember what NTG did . CP has been intermittent since admission Exam Vital signs: Temperature 97.9 F 08/04/17 07:41 Pulse Rate 64 08/04/17 10:53 Respiratory Rate 13 08/04/17 07:41 Blood Pressure 140/64 H 08/04/17 07:41 Pulse Oximetry 95 08/04/17 12:58 Inpatient Medications: Generic Name Dose Route Start Last Admin Trade Name Freq PRN Reason Stop Dose Admin Acetaminophen 325 - 650 mg 08/04/17 11:42 Tylenol PO Q5H PRN Pain Hydrocodone Bitart/Acetaminophen 1 - 2 tab 08/04/17 11:42 Jones 5/325 PO Q5H PRN Pain Al Hydroxide/Mg Hydroxide 30 ml 08/04/17 11:42 Maalox Plus PO Q3H PRN Indigestion Aspirin 81 mg 08/04/17 09:00 Asa PO DAILY [facility] Atorvastatin Calcium 20 mg 08/04/17 12:00 Lipitor PO DAILY [facility] Atropine Sulfate 0.5 mg 08/04/17 11:42 Atropine IVP Q5M PRN Bradycardia Bisacodyl 10 mg 08/04/17 11:42 Dulcolax RECTALLY DAILY PRN Constipation Clopidogrel Bisulfate 75 mg 08/04/17 09:00 Plavix PO DAILY [facility] Cyclobenzaprine HCl 10 mg 08/03/17 22:47 08/03/17 23:20 Flexeril PO 10 mg HS PRN Administration Muscle spasm Dextrose 25 ml 08/03/17 22:47 D50%W IVP PRN PRN Hypoglycemia Docusate Sodium 100 mg 08/04/17 08:00 08/04/17 11:55 Colace PO Not Given 0800 WILL[facility] Ferrous Sulfate 1 mg 08/04/17 08:00 Feosol PO WB [facility] Gabapentin 300 mg 08/04/17 08:00 Neurontin PO BIDBL [facility] Gabapentin 600 mg 08/04/17 21:00 08/03/17 23:20 Neurontin PO 600 mg HS WILL[facility] Administration Glucose 37.5 gm 08/03/17 22:47 Glutose 15 PO PRN PRN Hypoglycemia Sodium Chloride 1,000 mls @ 75 mls/hr 08/04/17 12:00 08/04/17 12:10 Normal Saline IV 75 mls/hr .[id number] WILLOW Administration Insulin Aspart 1 - 5 unit 08/03/17 22:47 Novolog SQ SS PRN Hyperglycemia Protocol Levothyroxine Sodium 75 mcg 08/04/17 06:30 08/04/17 06:27 Synthroid PO 75 mcg ACB [facility] Administration Lorazepam 0.5 mg 08/04/17 21:00 08/03/17 23:20 Ativan PO 0.5 mg HS WILLOW Administration Lorazepam 0.5 - 1 mg 08/04/17 11:42 Ativan PO Q4H PRN Anxiety Lorazepam 0.5 - 1 mg 08/04/17 11:42 Ativan Inj IVP Q4H PRN Anxiety Magnesium Hydroxide 30 ml 08/04/17 11:42 Mom PO DAILY PRN Constipation Metoclopramide HCl 5 - 10 mg 08/04/17 11:42 Reglan IVP Q6H PRN Nausea &/or vomiting Morphine Sulfate 2 mg 08/03/17 22:47 Morphine Sulfate Inj IVP Q5M PRN Chest pain Morphine Sulfate 2 - 4 mg 08/04/17 11:42 Morphine Sulfate Inj IVP 08/05/17 11:41 Q2H PRN Pain Morphine Sulfate 2 - 4 mg 08/04/17 11:42 Morphine Sulfate Inj IVP Q5M PRN Angina Nitroglycerin 0.4 mg 08/03/17 22:47 Nitrostat SL PRN PRN Chest pain Nitroglycerin 0.4 mg 08/04/17 11:42 Nitrostat SL Q5M PRN Angina Ondansetron HCl 4 mg 08/04/17 11:42 Zofran IVP Q6H PRN Nausea &/or vomiting Oxycodone/Acetaminophen 1 tab 08/03/17 22:47 08/04/17 06:27 Percocet 5/325 PO 1 tab Q6HR PRN Administration Pain Polyethylene Glycol 17 gm 08/04/17 09:00 08/04/17 09:09 Miralax PO Not Given DAILY [facility] Prednisone 10 mg 08/04/17 08:00 Deltasone 10 Mg PO WB [facility] Promethazine HCl 12.5 - 25 mg 08/04/17 11:42 Phenergan Inj IVP Q6HR PRN Nausea &/or vomiting Sertraline HCl 50 mg 08/04/17 12:00 Zoloft PO DAILY [facility] Sodium Chloride 10 - 80 ml 08/03/17 19:42 08/04/17 12:10 Iv Flush IVF 10 ml PRN PRN Administration Flushing Sulfasalazine 500 mg 08/04/17 09:00 Azulfidine PO BID [facility] Discontinued Medications Generic Name Dose Route Start Last Admin Trade Name Freq PRN Reason Stop Dose Admin Atorvastatin Calcium 20 mg 08/04/17 21:00 Lipitor PO HS [facility] Fentanyl 50 mcg 08/03/17 22:20 08/03/17 22:28 Fentanyl IVP 08/03/17 22:21 50 mcg O ONE Administration Nitroglycerin 0.4 mg 08/03/17 21:42 08/03/17 22:10 Nitrostat SL 08/03/17 21:43 0.4 mg O ONE Administration Sertraline HCl 50 mg 08/04/17 21:00 Zoloft PO HS [facility] - Constitutional no acute distress - Routine HEENT Exam Head: Present: normocephalic, atraumatic Eye: Present: EOMI, PERRL ENT: Present: mucous membranes moist - Routine Neck Exam Present: supple, normal carotid upstroke. Absent: JVD, carotid bruit, lymphadenopathy, thyromegaly - Routine Respiratory Exam Present: CTA bilaterally - Routine Cardiovascular Exam Present: murmur (soft 1/6 systolic), irregular rhythm - Routine Abdominal Exam Present: soft, normoactive bowel sounds, non distended, non tender. Absent: organomegaly, mass - Routine Extremities Exam Present: no edema, pulses intact, normal capillary refill. Absent: cyanosis, clubbing, extremity cold to touch - Routine Skin Exam Present: intact. Absent: cyanosis, erythema - Routine Neurological Exam Present: alert, oriented X3 - Routine Psychiatric Exam Present: normal affect, anxious Results 08/03/17 Unknown 08/04/17 04:24 Cardiac Enzymes 08/03/17 08/03/17 08/04/17 Range/Units 22:59 Unknown 04:24 AST 32 26 (14-36) U/L Troponin I < 0.012 < 0.012 (0-0.12) ng/ml 08/04/17 Range/Units 04:24 AST (14-36) U/L Troponin I < 0.012 (0-0.12) ng/ml Lipids 08/04/17 Range/Units 04:24 Triglycerides 68 (35-135) mg/dL Cholesterol 129 L (132-199) mg/dL HDL Cholesterol 76 H (40-60) mg/dL Cholesterol/HDL Ratio 1.7 (0-4.0) RATIO CBC 08/03/17 Range/Units Unknown WBC 12.4 H (4.5-11.0) T/MM3 RBC 3.51 L (4.00-5.20) M/MM3 Hgb 10.8 L (12-16) GM/DL Hct 32.7 L (36-46) % Plt Count 296 (130-400) T/MM3 Neut # (Auto) 10.1 H (1.8-7.7) T/MM3 Lymph # (Auto) 1.7 (1-4.8) T/MM3 Hinds # (Auto) 0.6 (0-0.8) T/MM3 Eos # (Auto) 0.0 (0-0.5) T/MM3 Baso # (Auto) 0.0 (0-0.2) T/MM3 Comprehensive Metabolic Panel 08/03/17 08/04/17 Range/Units Unknown 04:24 Sodium 135 L 137 (136-146) MEQ/L Potassium 4.5 4.2 (3.6-5) MEQ/L Chloride 96 L 100 (98-107) MEQ/L Carbon Dioxide 26 29 (22-30) MEQ/L BUN 12.0 12.0 (7-17) MG/DL Creatinine 0.8 0.8 (0.7-1.2) mg/dL Glucose 123 H 86 (65-110) MG/DL Calcium 8.8 8.4 (8.4-10.2) MG/DL AST 32 26 (14-36) U/L ALT 16 13 (1-35) U/L Alkaline Phosphatase 84 62 D (38-126) U/L Total Protein 7.8 6.6 (6.3-8.2) g/dL Albumin 4.5 3.6 (3.5-5.0) g/dL Intake and Output 08/03/17 08/04/17 08/04/17 22:59 06:59 14:59 Intake Total 240 / 240 Balance 240 / 240 Intake: Oral 240 / 240 Other: Urine Appearance Clear Urine Color Pale Yellow Urine Odor Normal # Voids 1 1 1 Weight 48.1 kg 49 kg Patient Weight 08/05/17 06:59 Weight 49 kg - Imaging and Cardiology EKG results: other (tel;e SR w PAC's ) Assessment and Plan - Assessment and Plan CP mixed typical and atypical features, reecnd SAM to RCA 04/2017 , h/o [place] 2 yrs w/ very atypical CP ("I thought it was my back pain" ) Hospital Course Summary Disclaimer: The visit summary below is not to be considered part of the above Progress Note. Hospital Course: Heart cath transradial w/o complications IV versed and fentanyl IA verapamil NTg and heparin widely patent stents to RCA and LCX conclusion noncardiac CP may go home tonight f/u pcp 1 wk RTC w me 3 mo
[2017-08-04] MEDS: GABAPENTIN 300 MG CAPSULE PO SCH ×2 (13:59→14:07)
[2017-08-04] MEDS: FERROUS SULFATE 324 MG TABLET PO SCH ×2 (14:06→14:11)
[2017-08-04 16:22] VITALS: BP 127/62
[2017-08-04 16:31] VITALS: PULSE 73; RESP 16; O2SAT 95
--- NOTE | 2017-08-04 17:26 | Progress Note ---
- Date 08/04/17 Subjective: F/U: Left shoulder pain. CAD Doing well this afternoon. Tolerated cath - no stenosis found, continued medical management of heart disease. Continue with shoulder pain - non cardiac. Feels is doing better. Eating well (hungry as was NPO until after cath this afternoon). Breathing stable. Does feel up to going home - discussed with patient about possible discharge tomorrow, but reports would rather go home today. Objective Vital signs: Temperature 97.9 F 08/04/17 07:41 Pulse Rate 73 08/04/17 16:30 Respiratory Rate 16 08/04/17 16:30 Blood Pressure 127/62 08/04/17 16:30 Pulse Oximetry 95 08/04/17 16:30 - Constitutional Present: well nourished, well developed, average body habitus, cooperative - Routine HEENT Exam Head: Present: normocephalic, atraumatic Eye: Present: EOMI, PERRL ENT: Present: mucous membranes moist - Routine Respiratory Exam Present: decreased breath sounds. Absent: rales, respiratory distress, rhonchi , stridor, wheezes, crackles - Routine Cardiovascular Exam Present: RRR, no murmur - Routine Abdominal Exam Present: soft, normoactive bowel sounds, non distended, non tender. Absent: guarding - Routine Extremities Exam Present: no edema, pulses intact. Absent: cyanosis, clubbing - Routine Skin Exam Present: dry, warm - Routine Neurological Exam Present: alert, oriented X3, CN II-XII intact, moving all extremities, vision grossly intact, hearing grossly intact, normal speech. Absent: motor deficit, altered mental status - Routine Psychiatric Exam Present: normal affect, normal thought process, cooperative Results - Labs CBC & Chem 7: 08/03/17 Unknown 08/04/17 04:24 Assessment and Plan (1) Chest pain of unknown etiology Current visit: Yes (2) Coronary artery disease Current visit: Yes Status: Acute (3) Hypothyroid Current visit: Yes Status: Acute (4) COPD (chronic obstructive pulmonary disease) Current visit: Yes Status: Acute (5) Iron (Fe) deficiency anemia Current visit: Yes Status: Acute Assessment and Plan: Assessment Left shoulder pain - concern for underlying unstable angina base on patient's prior history Cath showing no stenosis - Left shoulder pain noncardiac CAD with recent stent placement in April of this year HTN HDL COPD Tobacco dependency GERD Constipation OA OF Plan Troponin negative. Shoulder pain continues. Dr Nguyen consulted - did discuss pharm stress test but patient feels could not tolerate that. Subsequently recommends cardiac cath due to atypical chest pain concerning for AMI. Will change to inpatient admission due to need for heart cath. Tolerated cath well. Has recovered. Continue with current treatment for her underlying CAD. Encouraged Ice/Heat/Sport rubs to help shoulder pain. Discussed about PT/OT evaluation for her pain but she declined. Medically stable for discharge to home. Patient feels ready for discharge, declines spending night in hospital. Will discharge to home in stable condition. See orders for detail. - Physician Narrative Physician: Brian Ortiz MD Narrative: Date: 08/04/17 Time: 1723 Hospital Course Summary Disclaimer: The visit summary below is not to be considered part of the above Progress Note. Hospital Course: 08/03/17 OBS admission at presentation secondary to cardiac concerns to rule out AMI. TELE. Serial enzymes. Consult Dr Nguyen for cardiac recommendations. Continue home medications. Check lipid profile secondary to CAD/HDL and medication use. MS/NTG prn pain. Encourage tobacco cessation - Consult to RT placed. DNR as per her requests. Care to return to Dr Garcia at time of discharge from [facility] [place]. 08/04/17 Troponin negative. Shoulder pain continues. Dr Nguyen consulted - did discuss pharm stress test but patient feels could not tolerate that. Subsequently recommends cardiac cath due to atypical chest pain concerning for AMI. Will change to inpatient admission due to need for heart cath. Heart cath transradial w/o complications IV versed and fentanyl IA verapamil NTg and heparin widely patent stents to RCA and LCX Conclusion: noncardiac CP may go home tonight Continue with current treatment for her underlying CAD. Encouraged Ice/Heat/Sport rubs to help shoulder pain. Discussed about PT/OT evaluation for her pain but she declined. Medically stable for discharge to home. Patient feels ready for discharge, declines spending night in hospital. Will discharge to home in stable condition. See orders for detail. F/U with Dr Garcia in 1 week F/U with Dr Nguyen in 3 months See orders for detail.
--- NOTE | 2017-08-04 17:42 | Discharge Summary ---
Discharge Information Date of admission: 08/04/17 15:01 Anticipated date of discharge: 08/04/17 Attending Physician: Brian Ortiz MD Primary care physician: Tacos Garcia MD Consults: Dr Nguyen - Cardiology - Discharge Diagnosis (2) Coronary artery disease Status: Acute (3) Hypothyroid Status: Acute (4) COPD (chronic obstructive pulmonary disease) Status: Acute (5) Iron (Fe) deficiency anemia Status: Acute Admission diagnosis Chest pain/L scapula pain of uncertain etiology - rule out SC Discharge diagnosis Left shoulder pain - concern for underlying unstable angina base on patient's prior history Cath showing no stenosis - Left shoulder pain noncardiac Acute myocardial infarction ruled out Associated conditions and complications CAD with recent stent placement in April of this year HTN HDL COPD Tobacco dependency GERD Constipation OA OF - Procedures Procedures: Heart cath transradial w/o complications IV versed and fentanyl IA verapamil NTG and heparin widely patent stents to RCA and LCX - Laboratory Labs: Admit Laboratory Tests 08/03/17 Unknown WBC 12.4 H Hgb 10.8 L Hct 32.7 L Plt Count 296 Neut % (Auto) 81.3 H Lymph % (Auto) 13.4 L [place] % (Auto) 4.7 Eos % (Auto) 0.0 Baso % (Auto) 0.2 Admit Laboratory Tests 08/03/17 08/03/17 22:59 Unknown Sodium 135 L Potassium 4.5 Chloride 96 L Carbon Dioxide 26 Anion Gap 13 BUN 12.0 Creatinine 0.8 GFR Calculation 69 BUN/Creatinine Ratio 15 Glucose 123 H Hemoglobin A1c 5.1 Calculated Osmolality 261 Calcium 8.8 Total Bilirubin 0.40 AST 32 ALT 16 Alkaline Phosphatase 84 Troponin I < 0.012 Total Protein 7.8 Albumin 4.5 Globulin 3.3 Albumin/Globulin Ratio 1.4 Lipid Profile 08/04/17 04:24 Triglycerides 68 Cholesterol 129 L LDL Cholesterol, Calc 39.4 L VLDL Cholesterol 13.6 HDL Cholesterol 76 H Cholesterol/HDL Ratio 1.7 Hemoglobin A1c Test 08/03/17 22:59 Hemoglobin A1c 5.1 - Radiology Radiology: Date of Exam: 08/03/17 Type of Exam: CT angio pulm emboli Findings: Pulmonary arteries: Exam is diagnostic to the subsegmental pulmonary arterial level. No filling defects identified to suggest a pulmonary embolus. Other findings: Bilateral apical pleural thickening and scarring. No acute consolidative pneumonia. No pleural effusion or pneumothorax. Evidence of prior infection or inflammation in the lingula. Patulous esophagus. The central airways are patent. No gross adenopathy. Heart size is normal. No pericardial effusion. Upper abdomen shows no acute findings. Impression: No pulmonary embolus or acute pneumonia. History of Present Illness HPI: This is a 82 y/o female with a history of CAD s/p 3 stents 05/09. The patient has had previous NSTEMI 2 yrs ago. The patient had onset of left scapular pain for the past 2 weeks that comes and goes. She thought ? ms in nature and as such didn't seek immediate evaluation. Patient will note that the pain is similar to her previous episodes of cardiac instability. Today the patient was at a store shopping and the pain worsened. She became more short of breath. Appreciate that she is also a COPD patient. The patient activated EMs ultimately with her daughters encouragement, and they treated her with fentanyl which seemed to help her pain. ED evaluation was against acute myocardial infarct. Troponin negative, EKG non ischemic CTA chest excluded acute process. Patient was scheduled to see cardiology on and Cardiology came into the ED to evaluate and r/c admission with further consideration. For complete details of the H&P refer to that document. Objective Vital signs: Temperature 97.9 F 08/04/17 07:41 Pulse Rate 73 08/04/17 16:30 Respiratory Rate 16 08/04/17 16:30 Blood Pressure 127/62 08/04/17 16:30 Pulse Oximetry 95 08/04/17 16:30 Hospital Course This is a general summary of the patient's hospital course. For more details refer to the complete medical record. Hospital course: 08/03/17 OBS admission at presentation secondary to cardiac concerns to rule out AMI. TELE. Serial enzymes. Consult Dr Nguyen for cardiac recommendations. Continue home medications. Check lipid profile secondary to CAD/HDL and medication use. MS/NTG prn pain. Encourage tobacco cessation - Consult to RT placed. DNR as per her requests. Care to return to Dr Garcia at time of discharge from [facility] [place]. 08/04/17 Troponin negative. Shoulder pain continues. Dr Nguyen consulted - did discuss pharm stress test but patient feels could not tolerate that. Subsequently recommends cardiac cath due to atypical chest pain concerning for AMI. Will change to inpatient admission due to need for heart cath. Heart cath transradial w/o complications IV versed and fentanyl IA verapamil NTg and heparin widely patent stents to RCA and LCX Conclusion: Noncardiac Chest Pain Continue with current treatment for her underlying CAD. Encouraged Ice/Heat/Sport rubs to help shoulder pain. Discussed about PT/OT evaluation for her pain but she declined. Medically stable for discharge to home. Patient feels ready for discharge, declines spending night in hospital. Will discharge to home in stable condition. See orders for detail. F/U with Dr Garcia in 1 week F/U with Dr Nguyen in 3 months See orders for detail. Time spent with patient: discharge greater than 30 minutes Resuscitation Status: Do Not Resuscitate Discharge Plan - Discharge Disposition Discharge Date: 07/24/16 *Condition: Stable Reason For Visit (Visit label in EMR): left scapular pain - Discharge Medications *Discharge Medications: No Action Ondansetron [Ondansetron Odt] 8 mg PO PRN PRN #0 PRN Reason: NAUSEA &/OR VOMITING Atorvastatin Calcium 20 mg PO HS #0 Oxycodone/Acetaminophen 5/325 [Percocet 5/325] 1 tab PO Q6HR PRN #30 tab PRN Reason: Pain PEG 3350 17gm PACKET [Miralax] 17 gm PO DAILY #7 packet Gabapentin 600 mg PO HS Aspirin 81 mg PO DAILY sulfaSALAzine [Sulfasalazine Dr] 500 mg PO BID Sertraline [Zoloft] 50 mg PO HS Nitroglycerin [Nitrostat] 0.4 mg SL PRN PRN PRN Reason: Chest Pain Gabapentin 300 mg PO BIDBL #0 Levothyroxine Sodium 75 mcg PO ACB #0 Cyclobenzaprine [Flexeril] 1 tab PO HS PRN PRN Reason: Muscle Spasm predniSONE [Prednisone] 10 mg PO DAILY LORazepam [Ativan] 0.5 mg PO HS Ferrous Fumarate/Docusate [Iron W-Stool Softener Cplet] 1 each PO DAILY 30 Days #30 tablet.er Clopidogrel Bisulfate [Clopidogrel] 75 mg PO DAILY #30 tab - Discharge Packet/Instructions *Diet: cardiac *Activity: do not raise more than 5 Lb. and for 2 week. no driving for 72 hrs *Pain Management/Treatment: Tylenol 650 mg every 6 hrs as needed *Wound Care: keep site dry ,clean and open to air *Expected Signs/Symptoms: mild discomfort *Notify Physician if: discharge redness or severe pain at the site , severe numbness and tingling in the hand or fingers turning cold or pale . call 911 if severe or sudden swelling , brisk or pulsating bleed from heart cath entry site. severe numbness and tingling in the leg or toes . leg or foot turning cold or very pale. *During Business Hours Contact: *After Business Hours Contact: *Pending Lab/Results: No Pending Lab - Referrals/Follow Up *Referrals/Follow Up: Kamini Nguyen MD [Physician] - 3 Months (cancel appt this ) Tacos Garcia MD [Primary Care Provider] - 1 Week (regarding noncardiac CP , and to check R wrist) - Patient Handouts - Dismissal Complete Discharge Instructions are:: Complete Physician Narrative - Narrative Physician: Brian Ortiz MD Attestation Narrative: Date: 08/04/17 Time: 8399 I have independently interviewed and examined patient prior to discharge. See my progress note for details. Medically stable for discharge to home.
[2017-08-04] MEDS ORDERED: GABAPENTIN 300 MG CAPSULE PO SCH (21:00)
[2017-08-04] MEDS ORDERED: LORazepam 0.5 MG TABLET PO SCH (21:00)
--- NOTE | 2017-08-06 10:23 | Cardiac Catheterization Report ---
HEART CATHETERIZATION REPORT DATE OF SERVICE: 08/04/2017 PROCEDURE PERFORMED 1. Transradial right and left coronary angiogram. 2. Moderate conscious sedation administered by independent staff, duration of approximately 23 minutes. INDICATIONS Complex patient who is 82 years old with significant coronary artery disease, previous non-STEMI and stents x2. She has multiple chronic chest pains. She presented with chest pain with mixed features at the emergency room which has been getting worse. She said every time she has gotten iron infusion about 2 months ago her energy level improved and she started becoming more active and she noticed increased pain in her left scapula radiating around to the left anterior chest just below her left breast. The pain was worse with exertion, worse with position as well as deep breathing and did not improve with nitroglycerin. She indicated the pain was very similar to her MA pain in 2016. She is a complex patient and somewhat of a vague historian with some inconsistencies. She describes her previous experience with pharmacological stress nuclear scan as terrible due to severe side effects that she rated 10 times worse than labor pain. She had a most recent coronary stent, drug- eluting type to proximal RCA, placed in April 2017. The risk of in-stent restenosis was raised. After a prolonged discussion she opted to proceed with heart catheterization rather than stress test and she gave consent. NARRATIVE OF PROCEDURE he patient was brought to the cardiac cath laboratory. She received IV sedation , Versed and fentanyl. Please refer to nursing notes for exact amounts given. Under sterile technique, the right wrist was prepped and draped in the usual sterile fashion. I used lidocaine 1% by local infiltration--approximately 2 ml administered, then cannulated the right radial without difficulty using modified Seldinger percutaneous technique. A 6-Scottish slender sheath was introduced in place. Side arm was aspirated and flushed. A normal saline bolus , 500 ml, took care of the transient hypotension which was precipitated by vasodilator therapy including the intraarterial drug combo (verapamil, nitroglycerin as well as heparin for anticoagulation, per protocol). I went ahead and used a [place]field catheter to perform the above-mentioned procedure. The procedure was well tolerated. There was no immediate complication. At the conclusion of the study, a TR Band was deployed for hemostasis. Blood pressure was not unstable. FINDINGS Right coronary artery is a large dominant vessel with long stents in the proximal into the mid RCA, widely patent. Minimal plaquing in the RCA was present, about 25% in the midsegment. Distally, medium caliber RPDA and RPLB branches are widely patent. Left main coronary artery is large and normal. LAD is a large vessel, gives origin to two diagonal branches, medium in size. There is extensive coiling throughout the LAD and diagonal systems and only minor plaquing is identified without any occlusive disease. The left circumflex artery is a large nondominant vessel with minor scattered plaquing, nothing occlusive. It gives origin to an obtuse marginal branch that is relatively small in caliber, a larger PLB branch. There is a stent in the proximal left circumflex artery that is widely patent. IMPRESSION Widely patent stents in the left circumflex artery and RCA with only minor scattered plaquing and no occlusive coronary artery disease. CONCLUSION Noncardiac chest pain. MTDD
== END 2017-08-04 19:05 | disposition home or self-care (01) | DRG 287 ==
LOC: ED 19:17 → INTOOBSV 22:22 → EDHOLD 22:22 → SRG 22:39
PROVIDERS: ADMIT Emergency Medicine; ATTEND Hospitalist